=== PATIENT | male | born 1935 | race Caucasian/White ===

== ENCOUNTER → 2017-08-27 | Outpatient (CLI) | payer MEDICARE ==
[~2017-08-27] MED LIST: ALB18R INH; AMOX500T10 PO; ASPE325 PO; DAR100 PO; ESOM20CA7; FLU180SY9 IM; FLU45SYR17 IM; FLUT16SP19 NS; HYDR-3250 PO; HYDR-385 PO; IPRA3AMP21 IH; LEVO50TA80 PO; OMEP-153 PO; OND4 PO; PROL80 PO; PROP40SO PO; PROP80TA25 PO
--- NOTE | 2017-08-27 16:42 | RADIOLOGY IMAGING REPORT ---
[place] [facility] [place] NAME: Feliberto Gar : 1935 MR: [id number] V: [id number] EXAM DATE: ORDERING PHYSICIAN: LOCO GLOVER TECHNOLOGIST: Location: [facility] - [place] Patient: Feliberto Gar : 1935 Visit/Account:[id number] Date of Sevice: 08/27/2017 Exam type: CHEST PA AND LAT History: copd exacerbation persistent increase in cough/sob/whee Comparison: February 02, 2014. Findings: Again noted is hyperinflation of lung wang. There is no evidence of acute appearing infiltrates, p leural effusions or pulmonary edema. Catalino wood is normal in size. There is moderate ectasia thorac ic aorta. Moderate spondylotic changes of the thoracic spine. IMPRESSION: 1. Hyperinflation lung wang although no evidence of acute pulmonary consolidation Results were called to LOCO GLOVER at 08/27/2017 4:39 PM. Report Dictated By: Radha Mota MD at 08/27/2017 4:33 PM Report E-Signed By: Radha Mota MD at 08/27/2017 4:39 PM [id number]:[email or web address]
== END ==
LOC: RAD 16:11
PROVIDERS: ATTEND Family Medicine
DX: I77.810 Thoracic aortic ectasia (principal); M47.894 Other spondylosis, thoracic region; R91.8 Other nonspecific abnormal finding of lung field
CPT/HCPCS: 71046

== ENCOUNTER → 2017-09-26 | Outpatient (CLI) | payer MEDICARE ==
[~2017-09-26] MED LIST changes: +ALBU8.5H IH
[2017-09-26 14:31] LABS: PLATELET COUNT, AUTOMATED 255 K/uL (150-450)
== END ==
LOC: RAD 08-12 13:48 → LAB 14:03
PROVIDERS: ATTEND Family Medicine
DX: I10 Essential (primary) hypertension (principal); E03.9 Hypothyroidism, unspecified; E55.9 Vitamin D deficiency, unspecified
CPT/HCPCS: 36415; 82040; 82247; 82306; 82310; 82374; 82435; 82565; 82947; 84075; 84132; 84155; 84295; 84443; 84450; 84460; 84520; 85025

== ENCOUNTER → 2017-12-25 | Outpatient (CLI) | payer MEDICARE ==
[~2017-12-25] MED LIST changes: +CHOL200074 PO; +IPRA3AMP10 IH; -IPRA3AMP21 IH; +LEVO50TA86 PO
[2017-12-25 15:20] LABS: PLATELET COUNT, AUTOMATED 244 K/uL (150-450)
== END ==
LOC: LAB 14:53
PROVIDERS: ATTEND Family Medicine
DX: E03.9 Hypothyroidism, unspecified (principal); R53.83 Other fatigue; R63.4 Abnormal weight loss; E55.9 Vitamin D deficiency, unspecified
CPT/HCPCS: 36415; 82040; 82247; 82306; 82310; 82374; 82435; 82565; 82947; 84075; 84132; 84155; 84295; 84443; 84450; 84460; 84520; 85025

== ENCOUNTER → 2018-03-11 | Outpatient (CLI) | payer MEDICARE ==
[2018-02-01 12:57] VITALS: BMI 19.5
[~2018-03-11] MED LIST changes: +ASPI-870 PO; +CLOP75TA PO; +DICL100G39 TOP; +ESOM40CA42 PO; +LISI5TAB25 PO
== END ==
LOC: LAB 10:41
PROVIDERS: ATTEND Family Medicine
DX: I10 Essential (primary) hypertension (principal)
CPT/HCPCS: 36415; 82310; 82374; 82435; 82565; 82947; 84132; 84295; 84520

== ENCOUNTER → 2018-03-19 | Outpatient (CLI) | payer MEDICARE ==
[2018-02-01 12:57] VITALS: BMI 19.5
[~2018-03-19] MED LIST changes: +FLU180SY11 IM
== END ==
LOC: US 00:35
PROVIDERS: ATTEND Surgery Vascular Surgery
DX: Z02.9 Encounter for administrative examinations, unspecified (principal)

== ENCOUNTER → 2018-03-20 | Outpatient (CLI) | payer MEDICARE ==
[2018-02-01 12:57] VITALS: BMI 19.5
--- NOTE | 2018-03-20 17:51 | RADIOLOGY IMAGING REPORT ---
FACILITY: [facility] [place] PATIENT NAME: Feliberto Gar : 1935 MR: [id number] V: [id number] EXAM DATE: ORDERING PHYSICIAN: CHARLES ORONA TECHNOLOGIST: Location: [facility] - [place] Patient: Feliberto Gar : 1935 Visit/Account:[id number] Date of Sevice: 03/20/2018 EXAMINATION: Carotid ultrasound with duplex Doppler evaluation HISTORY: History of carotid endarterectomy. COMPARISON: None. TECHNIQUE: Real-time grayscale, color flow and Doppler sonography of the cervical carotid and vertebr al arteries is performed. Stenosis % is determined from velocity criteria extrapolated from diameter data as defined by the Soc iety of Radiologists in Ultrasound Consensus Conference Radiology 2003; 229; 340-346. FINDINGS: Plaque: Atherosclerotic plaque is seen in the left carotid bulb. Waveforms: Normal. Vertebral arteries: Antegrade flow in both vertebral arteries. Peak systolic velocities are listed below in centimeters/second: Right: CCA proximal: 101 CCA distal: 82.1 ICA proximal: 95.4 ICA mid: 82.7 ICA distal: 76.3 ECA: 144 Vertebral: 40.1 ICA/CCA ratio: 1.13 Left: CCA proximal: 94.9 CCA distal: 74.4 ICA proximal: 67.9 ICA mid: 69.9 ICA distal: 62.8 ECA: 85.3 Vertebral: 47.3 ICA/CCA ratio: 0.87 IMPRESSION: No evidence of hemodynamically significant stenosis in the right or left internal carotid artery. Report Dictated By: Norberto Villalobos at 03/20/2018 5:43 PM Report E-Signed By: Norberto Villalobos at 03/20/2018 5:47 PM WSN:[id number]
== END ==
LOC: CT 03-19 00:34 → US 09:09
PROVIDERS: ATTEND Surgery Vascular Surgery
DX: I65.21 Occlusion and stenosis of right carotid artery (principal)
CPT/HCPCS: 93880

== ENCOUNTER → 2018-03-23 | Outpatient (CLI) | payer MEDICARE ==
[2018-02-01 12:57] VITALS: BMI 19.5
[~2018-03-23] MED LIST changes: +IOPAMIDOL 76% 75 ML INFUS BTL 75 ML ONE
--- NOTE | 2018-03-23 11:12 | RADIOLOGY IMAGING REPORT ---
FACILITY: PATIENT NAME: Feliberto Gar : 1935 MR: [id number] V: [id number] EXAM DATE: ORDERING PHYSICIAN: LOCO GLOVER TECHNOLOGIST: [place] [facility] [place] Feliberto Gar : 1935 Visit/Account:[id number] Date of Sevice: 03/23/2018 CHEST/AB/PELV W/WO CONTRAST HISTORY: Weight loss, 40 year pack hx ADDITIONAL HISTORY: None. TECHNIQUE: Pre and post administration of IV contrast axial images acquired through the chest abdome n and pelvis during the portal venous phase. Coronal and sagittal reformatting was also performed.Do se Lowering Technique One of the following dose optimization techniques was utilized in the performance of this exam: Autom ated exposure control; adjustment of the mA and/or kV according to the patient's size; or use of an i terative reconstruction technique. Specific details can be referenced in the facility's radiology C T exam operational policy. CONTRAST: 75 mL Isovue-370 COMPARISON: CT chest April 08, 2014 FINDINGS: CHEST: Lungs/Pleura: Extensive centrilobular emphysema seen throughout the lungs. There is a 4 x 5 mm nonc alcified pleural-based nodule lateral aspect of the right upper lobe appears stable when compared the prior study. This is best seen on image 183 of series 4. There is a 4 mm subpleural nodule lateral aspect right upper lobe not appreciated previously best seen on image 188. There is a 4 mm subpleur al nodule also lateral aspect right upper lobe not seen previously best seen on image 187. There is coarse linear stranding in both lower lobes slightly increased when compared the prior study. Centra l peribronchial thickening throughout the lungs appears similar to the prior study Mediastinum/lymph nodes: Small AP window lymph nodes and fatty replaced pretracheal lymph nodes appe ar similar to the prior study Heart/vessels: Moderate atherosclerotic calcifications are seen in the thoracic aorta and branch ves sels including the coronary arteries Bones/soft tissues: Moderate spondylotic changes in the thoracic spine and gentle S-shaped scoliosis of the thoracolumbar spine ABDOMEN AND PELVIS: Hepatobiliary: Hepatic cysts,. Cholelithiasis although no evidence of biliary ductal dilatation Spleen: Negative. Pancreas: Negative. Adrenals: Mild thickening the adrenal glands Kidneys ureters and bladder : Negative. Genitalia: TURP defect. GI: Small hiatal hernia. Extensive diverticulosis throughout the colon although no CT evidence of acute diverticulitis . Vessels/spaces/nodes: There are extensive atherosclerotic calcifications and mural thrombus seen thr oughout the abdominal aorta and branch vessels there is ectasia in the infrarenal abdominal aorta jodi suring up to 2.8 x 2.6 cm. 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 Ther e are spondylotic changes in the thoracolumbar spine Additional findings: None pertinent. IMPRESSION: Extensive centrilobular emphysema throughout the lungs.. 4 x 5 mm noncalcified pleural-based nodule lateral aspect right upper lobe appears stable There are additional nodules in the lateral right upper lobe measuring up to 4 mm not appreciated pre viously. Coarse linear stranding in the lower lobes slightly increased when compared the prior study. Central peribronchial thickening throughout the lungs appears similar Extensive atherosclerotic calcifications throughout the chest abdomen and pelvis as detailed above Cholelithiasis although no evidence of biliary ductal dilatation Small hiatal hernia Extensive diverticulosis throughout the colon. 1 cm sclerotic focus posterior aspect left iliac bone may represent a bone island. This appeared to been present on a prior KUB from June 03, 2011 Report Dictated By: Radha Mota MD at 03/23/2018 10:33 AM Report E Signed By: Radha Mota MD at 03/23/2018 11:08 AM WSN:[email or web address]
== END ==
LOC: CT 01:15
PROVIDERS: ATTEND Family Medicine
DX: R91.8 Other nonspecific abnormal finding of lung field (principal); I25.10 Atherosclerotic heart disease of native coronary artery without angina pectoris; J44.9 Chronic obstructive pulmonary disease, unspecified; K80.20 Calculus of gallbladder without cholecystitis without obstruction; K44.9 Diaphragmatic hernia without obstruction or gangrene; K57.30 Diverticulosis of large intestine without perforation or abscess without bleeding
CPT/HCPCS: 71270; 74178; Q9967

== ENCOUNTER → 2018-04-22 | Outpatient (CLI) | payer MEDICARE ==
[2018-02-01 12:57] VITALS: BMI 19.5
[~2018-04-22] MED LIST changes: -IOPAMIDOL 76% 75 ML INFUS BTL 75 ML ONE; +PNEU0.5D3 IM
== END ==
LOC: RESP 00:56
PROVIDERS: ATTEND Family Medicine
DX: J98.4 Other disorders of lung (principal)
CPT/HCPCS: 94060; 94726; 94729

== ENCOUNTER 2018-06-25 17:11 | Emergency (ER) | payer MEDICARE ==
[2018-02-01 12:57] VITALS: Wt 60.6 kg
[~2018-06-25 17:11] MED LIST changes: +ESOM20CA31 PO; +OXYGENHOME INH
[2018-06-25] MEDS ORDERED: TRANEXAMIC AC 1000 MG/10ML SDV ONE (17:25)
--- NOTE | 2018-06-25 17:25 | ER Report ---
History and Physical Time Seen By MD: 17:24 HPI/ROS CHIEF COMPLAINT: Nosebleed HISTORY OF PRESENT ILLNESS: This is an 83-year-old male who presents to the emergency department for a nosebleed. Patient states that 3:30 to noon he developed a nontraumatic nosebleed to the left nares. Patient states that he has at least one nosebleed today. Patient states he has removed several clots from his left nares. He denies shortness of breath, nausea or vomiting. He has no other complaints at this time. Upon arrival when he does remove his finger from the nares there is no active bleeding. REVIEW OF SYSTEMS: Respiratory: No cough, no dyspnea. ENT: As above. Cardiovascular: No chest pain, no palpitations. Gastrointestinal: No vomiting, no abdominal pain. Musculoskeletal: No back pain. Allergies: Coded Allergies: pravastatin (Verified Allergy, Unknown, 07/12/13) Uncoded Allergies: STATIN DRUGS (Allergy, Mild, 02/23/10) Home Meds Active Scripts Lisinopril (LISINOPRIL) 5 Mg Tablet, 1 TAB PO DAILY for 90 Days, #90 TAB 4 Refills Prov:LOCO GLOVER MD 06/02/18 Levothyroxine Sodium (LEVOTHYROXINE SODIUM) 50 Mcg Tablet, 1 TAB PO QDAY for 90 Days, #90 TAB 4 Refills Prov:LOCO GLOVER MD 05/07/18 Propranolol Hcl (PROPRANOLOL HCL) 80 Mg Capcr, 1 CAP PO DAILY for 90 Days, #90 CAP 4 Refills Prov:LOCO GLOVER MD 03/25/18 Diclofenac Sodium 1% Gel (VOLTAREN 1% GEL) 100 Gm Gel..gram., 2 GM TOP TID for 30 Days, #1 TUBE 4 Refills Prov:LOCO GLOVER MD 02/02/18 Aspirin (Children's Aspirin) 81 Mg Tab.chew, 81 MG PO QDAY for 21 Days, TAB.CHEW Prov:JJ DAI MD 02/01/18 Fluticasone Prop 50 Mcg Ns (FLONASE 50 MCG NS) 16 Gm [employer].susp, 2 SPRAYS NS QDAY for 30 Days, #1 BOT 3 Refills Prov:LOCO GLOVER MD 09/26/17 Albuterol Sulfate 90 Mcg/Act (PROAIR HFA 90 MCG/ACT) 8.5 Gm Hfa.aer.ad, 1-2 PUFF IH 3-4XD for 30 Days, #1 INHALER 4 Refills Prov:LOCO GLOVER MD 09/26/17 Ipratropium/Albuterol Sulfate (IPRAT-ALBUT 0.5-3(2.5) MG/3 ML) 3 Ml Ampul.neb, 3 ML IH 2-3XD PRN for SHORTNESS OF BREATH for 30 Days, #90 INH 3 Refills Prov:LOCO GLOVER MD 08/27/17 Reported Medications Oxygen (OXYGEN) Inha, 2 L INH HS, L 06/02/18 Esomeprazole Magnesium (NEXIUM) 20 Mg Capsule.dr, 1 CAP PO QDAY, CAP 06/02/18 Cholecalciferol (Vitamin D3) (VITAMIN D-3) 2,000 Unit Capsule, 1 CAP PO DAILY, CAPSULE 10/01/17 Past Medical/Surgical History The patient has a past medical and surgical history of TIA, carotid artery blockage, CVA, hypertension, hypercholesterolemia, emphysema, COPD, GERD, prostatitis, arthritis, dentures, hearing aids, hypothyroidism, basal cell, pituitary tumor with surgery, endarterectomy, hernia repair 2, appendectomy, TURP, ankle surgery. Reviewed Nurses Notes: Yes Hx Smoking: No Smoking Status: Current: Every Day Smoker Hx Substance Use Disorder: No Hx Alcohol Use: No Constitutional Vital Sign - Last 24 Hours 06/25/18 06/25/18 06/25/18 06/25/18 17:11 17:26 17:27 17:28 Temp 98.0 Pulse ? 66 Resp 16 B/P (MAP) 178/79 178/79 (112) Pulse Ox 89 O2 Delivery Room Air 06/25/18 06/25/18 06/25/18 06/25/18 17:30 17:41 17:56 18:00 Pulse 66 60 B/P (MAP) 180/81 (114) 144/60 (88) Pulse Ox 91 89 06/25/18 06/25/18 06/25/18 06/25/18 18:11 18:26 18:30 18:37 Pulse 59 58 B/P (MAP) 98/61 (73) 115/58 (77) Pulse Ox 88 89 06/25/18 06/25/18 06/25/18 18:41 18:56 19:00 Pulse 59 57 B/P (MAP) 146/134 (138) Pulse Ox 95 96 Physical Exam General Appearance: The patient is alert, has no immediate need for airway protection and no current signs of toxicity. Eyes: Pupils equal and round no injection. Nose: After the clamp was removed from the nose the left nares was not actively bleeding. I did see a small area of irritation, no large clots. Nose: After the ticks a packing was removed from the left nares, the patient stood up and had some mild bloody drainage from the right nares, no significant bleeding identified. Anterior mucosa irritation. Patient was able to clamp and bleeding resolved. Respiratory: Chest is non tender, lungs are clear to auscultation. Cardiac: regular rate and rhythm. Gastrointestinal: Abdomen is soft and non tender, no masses, bowel sounds normal. Musculoskeletal: Neck: Neck is supple and non tender. Extremities have full range of motion and are non tender. Skin: No rashes or lesions. DIFFERENTIAL DIAGNOSIS: After history and physical exam differential diagnosis was considered for epistaxis. Hypertension. Trauma. Medical Decision Making Data Points Result Diagram: 06/25/18 1822 Laboratory Hematology Test 06/25/18 18:22 Red Blood Count 4.92 M/uL (4.00-5.60) Mean Corpuscular Volume 90.7 fL (80.0-96.0) Mean Corpuscular Hemoglobin 31.6 pg (26.0-33.0) Mean Corpuscular Hemoglobin Concent 34.8 g/dL (32.0-36.0) Red Cell Distribution Width 13.3 % (11.5-14.5) Mean Platelet Volume 8.8 fL (7.2-11.1) Neutrophils (%) (Auto) 58.3 % (39.4-72.5) Lymphocytes (%) (Auto) 29.0 % (17.6-49.6) Monocytes (%) (Auto) 8.2 % (4.1-12.4) Eosinophils (%) (Auto) 3.4 % (0.4-6.7) Basophils (%) (Auto) 1.1 % (0.3-1.4) Nucleated RBC Relative Count (auto) 0.1 /100WBC Neutrophils # (Auto) 4.2 K/uL (2.0-7.4) Lymphocytes # (Auto) 2.1 K/uL (1.3-3.6) Monocytes # (Auto) 0.6 K/uL (0.3-1.0) Eosinophils # (Auto) 0.2 K/uL (0.0-0.5) Basophils # (Auto) 0.1 K/uL (0.0-0.1) Nucleated RBC Absolute Count (auto) 0.00 K/uL Prothrombin Time 12.8 seconds (12.0-14.4) Prothromb Time International Ratio 0.97 Activated Partial Thromboplast Time 35 seconds (23-35) Chemistry Test 06/25/18 18:22 White Blood Count 7.2 k/uL (4.5-11.0) Red Blood Count 4.92 M/uL (4.00-5.60) Hemoglobin 15.5 g/dL (14.0-18.0) Hematocrit 44.7 % (42.0-52.0) Mean Corpuscular Volume 90.7 fL (80.0-96.0) Mean Corpuscular Hemoglobin 31.6 pg (26.0-33.0) Mean Corpuscular Hemoglobin Concent 34.8 g/dL (32.0-36.0) Red Cell Distribution Width 13.3 % (11.5-14.5) Platelet Count 286 K/uL (150-450) Mean Platelet Volume 8.8 fL (7.2-11.1) Neutrophils (%) (Auto) 58.3 % (39.4-72.5) Lymphocytes (%) (Auto) 29.0 % (17.6-49.6) Monocytes (%) (Auto) 8.2 % (4.1-12.4) Eosinophils (%) (Auto) 3.4 % (0.4-6.7) Basophils (%) (Auto) 1.1 % (0.3-1.4) Nucleated RBC Relative Count (auto) 0.1 /100WBC Neutrophils # (Auto) 4.2 K/uL (2.0-7.4) Lymphocytes # (Auto) 2.1 K/uL (1.3-3.6) Monocytes # (Auto) 0.6 K/uL (0.3-1.0) Eosinophils # (Auto) 0.2 K/uL (0.0-0.5) Basophils # (Auto) 0.1 K/uL (0.0-0.1) Nucleated RBC Absolute Count (auto) 0.00 K/uL Prothrombin Time 12.8 seconds (12.0-14.4) Prothromb Time International Ratio 0.97 Activated Partial Thromboplast Time 35 seconds (23-35) Coagulation Test 06/25/18 18:22 Prothrombin Time 12.8 seconds Prothromb Time International Ratio 0.97 Activated Partial Thromboplast Time 35 seconds ED Course/Re-evaluation ED Course The patient was admitted to room. A history and physical were obtained. Differential diagnoses were considered. A T [id number] cotton ball was placed to the left nares, after said for 30-45 minutes it was removed, no active bleeding from the left nares. Patient did have a small amount of bleeding from the right nares however with a clamp and some mild pressure it did resolve, no significant drainage from the right, on inspection just showing some mild irritation to the anterior surface of the mucosa. CBC and INR unremarkable. Reviewed the results with the patient. Patient was prepared for discharge. Patient will follow-up with his primary care provider as scheduled. Return to ER for any other concerns or worsening symptoms. Patient was in agreement with this plan of care. Decision to Disposition Date: Jun 25, 2018 Decision to Disposition Time: 19:00 Depart Departure Latest Vital Signs Vital Signs Date Time Temp Pulse Resp B/P (MAP) Pulse Ox O2 Delivery O2 Flow Rate FiO2 06/25/18 19:00 146/134 (138) 06/25/18 18:56 57 96 06/25/18 17:27 98.0 16 Room Air Impression: Primary Impression: Epistaxis Condition: Improved Disposition: HOME OR SELF-CARE Referrals: LOCO GLOVER MD (PCP) 1 Week Patient Instructions: Nosebleed (ED) Additional Instructions: Please try the oxymask, this may help prevent your nose bleeds. Apply a thin layer of antibiotic ointment to your nares, this will help moisten the mucous membrane. Drink plenty of water. Get plenty of rest. Follow-up with Dr. Glover as scheduled. Return to the ER for any other concerns or worsening symptoms. GENA PORTILLO [employer]GER[employer] Jun 25, 2018 17:25
[2018-06-25] MEDS ORDERED: ENT KIT ONE (17:40)
[2018-06-25 18:42] LABS: PLATELET COUNT, AUTOMATED 286 K/uL (150-450)
[2018-06-25 18:59] LABS: INR 0.97
[2018-06-25 19:00] VITALS: BP 146/134
== END 2018-06-25 19:15 | disposition home or self-care (01) ==
LOC: ER 17:32
DX: R04.0 Epistaxis (principal)
CPT/HCPCS: 36415; 85025; 85610; 85730; 99282

== ENCOUNTER → 2018-09-01 | Outpatient (CLI) | payer MEDICARE ==
[2018-02-01 12:57] VITALS: BMI 19.5
[~2018-09-01] MED LIST changes: +BUDE10.2 INH; +MUPI22OI28 TP
== END ==
LOC: LAB 13:44
PROVIDERS: ATTEND Family Medicine
DX: E03.9 Hypothyroidism, unspecified (principal); I10 Essential (primary) hypertension
CPT/HCPCS: 36415; 82040; 82247; 82310; 82374; 82435; 82565; 82947; 84075; 84132; 84155; 84295; 84443; 84450; 84460; 84520

== ENCOUNTER 2018-11-24 09:00 | Outpatient (RCR) | payer MEDICARE ==
[2018-02-01 12:57] VITALS: BMI 19.5
[~2018-11-24 09:00] MED LIST changes: +PROP60CA22 PO
== END 2018-12-14 ==
LOC: CARD 09:00
PROVIDERS: ATTEND Family Medicine
DX: J44.9 Chronic obstructive pulmonary disease, unspecified (principal)
CPT/HCPCS: G0424 ×14

== ENCOUNTER → 2018-12-01 | Outpatient (CLI) | payer MEDICARE ==
[2018-02-01 12:57] VITALS: BMI 19.5
[2018-12-01 14:34] LABS: PLATELET COUNT, AUTOMATED 262 K/uL (150-450)
== END ==
LOC: LAB 14:20
PROVIDERS: ATTEND Family Medicine
DX: E55.9 Vitamin D deficiency, unspecified (principal); I10 Essential (primary) hypertension
CPT/HCPCS: 36415; 82306; 82310; 82374; 82435; 82565; 82947; 84132; 84295; 84520; 85025

== ENCOUNTER 2018-12-15 09:00 | Outpatient (RCR) | payer MEDICARE ==
[2018-02-01 12:57] VITALS: BMI 19.5
== END 2018-12-15 18:00 | disposition home or self-care (01) ==
LOC: CARD 09:00
PROVIDERS: ATTEND Family Medicine
DX: J44.9 Chronic obstructive pulmonary disease, unspecified (principal)
CPT/HCPCS: G0424

== ENCOUNTER 2018-12-22 14:56 | Emergency (ER) | payer MEDICARE ==
[2018-02-01 12:57] VITALS: Wt 59.0 kg
--- NOTE | 2018-12-22 14:59 | ER Report ---
History and Physical Time Seen By MD: 14:55 HPI/ROS CHIEF COMPLAINT: Bilateral epistaxis HISTORY OF PRESENT ILLNESS: Patient is an 83-year-old male here with complaints of bilateral epistaxis which is been intermittent for the past several weeks. Patient reportedly had been seen here, in the ENT office with Dr. Beyer at which time cauterization was performed. Patient is hemodynamically stable at time of evaluation, afebrile. Denied being on anticoagulation aside from daily aspirin. REVIEW OF SYSTEMS: Constitutional: No fever, no chills. Eyes: No discharge. ENT: No sore throat. + Active bleeding from bilateral Kesselbechs plexus Skin: No rashes. Neurological: No headache. No cranial nerve deficits Allergies: Coded Allergies: pravastatin (Verified Allergy, Unknown, 07/12/13) Uncoded Allergies: STATIN DRUGS (Allergy, Mild, 02/23/10) Home Meds Active Scripts Propranolol Hcl (PROPRANOLOL HCL) 60 Mg Cap.sa.24h, 60 MG PO QDAY for 30 Days, #90 CAP.SA 4 Refills Prov:LOCO GLOVER MD 11/16/18 Budesonide/Formoterol Fumarate (SYMBICORT 160-4.5 MCG INHALER) 10.2 Gm Inh, 2 PUFF INH BID for 30 Days, #1 INH 4 Refills Prov:LOCO GLOVER MD 09/01/18 Mupirocin (MUPIROCIN) 22 Gm Oint...g., 1 MELISSA TP BID for 14 Days, #1 TUBE Prov:RYANN BEYER JR, MD 07/29/18 Levothyroxine Sodium (LEVOTHYROXINE SODIUM) 50 Mcg Tablet, 1 TAB PO QDAY for 90 Days, #90 TAB 4 Refills Prov:LOCO GLOVER MD 05/07/18 Diclofenac Sodium 1% Gel (VOLTAREN 1% GEL) 100 Gm Gel..gram., 2 GM TOP TID for 30 Days, #1 TUBE 4 Refills Prov:LOCO GLOVER MD 02/02/18 Aspirin (Children's Aspirin) 81 Mg Tab.chew, 81 MG PO QDAY for 21 Days, TAB.CHEW Prov:JJ DAI MD 02/01/18 Albuterol Sulfate 90 Mcg/Act (PROAIR HFA 90 MCG/ACT) 8.5 Gm Hfa.aer.ad, 1-2 PUFF IH 3-4XD for 30 Days, #1 INHALER 4 Refills Prov:LOCO GLOVER MD 09/26/17 Ipratropium/Albuterol Sulfate (IPRAT-ALBUT 0.5-3(2.5) MG/3 ML) 3 Ml Ampul.neb, 3 ML IH 2-3XD PRN for SHORTNESS OF BREATH for 30 Days, #90 INH 3 Refills Prov:LOCO GLOVER MD 08/27/17 Reported Medications Oxygen (OXYGEN) Inha, 2 L INH HS, L [employer] 06/02/18 Esomeprazole Magnesium (NEXIUM) 20 Mg Capsule.dr, 1 CAP PO QDAY, CAP 06/02/18 Cholecalciferol (Vitamin D3) (VITAMIN D-3) 2,000 Unit Capsule, 1 CAP PO DAILY, CAPSULE 10/01/17 Hx Smoking: No Smoking Status: Current: Every Day Smoker Hx Substance Use Disorder: No Hx Alcohol Use: No Constitutional Vital Sign - Last 24 Hours 12/22/18 15:09 Temp 97.5 Pulse 61 Resp 16 B/P (MAP) 179/77 Pulse Ox 94 O2 Delivery Room Air Physical Exam General Appearance: The patient is alert, has no immediate need for airway protection and no signs of toxicity. No acute distress Eyes: Pupils equal and round no pallor or injection. ENT, Mouth: Mucous membranes are moist.+ Bleeding bilaterally from Kiesselbach's plexus Neurological: No focal neurological deficits, cranial nerves intact Skin: Warm and dry, no rashes. DIFFERENTIAL DIAGNOSIS: After history and physical exam differential diagnosis was considered for anterior versus posterior epistaxis Medical Decision Making ED Course/Re-evaluation ED Course Patient is an 83-year-old male here with complaints of bilateral epistaxis originating from Kiesselbach's plexus. Patient was initially administered phenylephrine, and direct pressure was held by the patient. I came and reeva luated the patient and applied cotton soaked gauze with tranexamic acid and had the patient hold this for 15 minutes. Upon reevaluation, the patient had cessation of bleeding. I discussed with the patient conservative measures for treatment at home in case he rebleeds with phenylephrine, left over tranexamic acid. Patient will follow up with Dr. Beyer with ENT closely, return pre cautions were provided. Decision to Disposition Date: Dec 22, 2018 Decision to Disposition Time: 16:06 Depart Departure Latest Vital Signs Vital Signs Date Time Temp Pulse Resp B/P (MAP) Pulse Ox O2 Delivery O2 Flow Rate FiO2 12/22/18 15:09 97.5 61 16 179/77 94 Room Air Impression: Primary Impression: Epistaxis Condition: Improved Disposition: HOME OR SELF-CARE Referrals: LOCO GLOVER MD (PCP) Patient Instructions: Nosebleed (GEN) Additional Instructions: Please monitor for signs of bleeding. In case you rebleed, please spray phenylephrine into the affected nostril and applied direct pressure for 15 minutes, if this is unsuccessful, apply tranexamic soaked gauze directly to the nostril affected. Please call Dr. Beyer to 7 appointment for reevaluation. Please return promptly if you're unable stop the bleed, develop headaches, weakness, dizziness. ANTWON ALEJO DO Dec 22, 2018 14:58
[2018-12-22] MEDS ORDERED: ENT KIT ONE (15:04)
[2018-12-22] MEDS ORDERED: TRANEXAMIC AC 1000 MG/10ML SDV ONE (15:05)
[2018-12-22 15:09] VITALS: BP 179/77
[2018-12-22] MEDS ORDERED: PHENYLEPHRINE 0.5% 15 ML BTL ONE (15:44)
[2018-12-23] MEDS ORDERED: PHENYLEPHRINE 0.5% 15 ML BTL ONE (03:49)
== END 2018-12-22 16:24 | disposition home or self-care (01) ==
LOC: ER 15:05
DX: R04.0 Epistaxis (principal)
CPT/HCPCS: 99282; A9270